=== PATIENT | female | born 1965 | race African-American/Black ===

== ENCOUNTER → 2017-01-17 | Outpatient (CLI) | payer OTHER ==
[~2017-01-17] VITALS: Ht 167.6 cm; Wt 81.4 kg
[~2017-01-17] MED LIST: AMLO10 PO; AMLO10TA2 PO; BETA0.056 TOPICAL; CHLORHEXIDINE GLUCONATE 2 % 1 PACK (2 CLOTHS) TOPICAL PRN; HUMALOG SQ; HYDR25TA5 PO; INSULIN HUMAN REGULAR 1,000 UNITS/10 ML VIAL SQ PRN; LACTATED RINGER'S 1000 ML IV PRN; LOSA25TA PO; METOPROLOL TARTRATE 25 MG TAB PO PRN; NOVONP2 SQ; POVIDONE IODINE 5% (ANTISEPSIS KIT) 4 APPLICATIONS EACH NARE PRN; PROPOFOL 200 MG/20 ML AMP IV ONE; SODIUM CHLORID 0.9% 500 ML IV PRN
[2017-01-17 08:45] VITALS: BP 144/93; PULSE 50; RESP 16; TEMP 98.6; O2SAT 99
[2017-01-17 11:45] VITALS: TEMP 97.4
--- NOTE | 2017-01-17 11:57 | GIPROC ---
[facility] [address] [facility]. [facility], [address] COLONOSCOPY PROCEDURE REPORT EXAM DATE: 01/17/2017 PATIENT NAME: Erica Tesfaye MR #: [id number] BIRTHDATE: 1965 ENDOSCOPIST: Marty Sivla MD ORDER #: [id number] NEEDLEMAKER: Laith Casas and Jose Guadalupe Howe STATUS: outpatient INDICATIONS: The patient is a 51 yr old female here for a colonoscopy due to average risk patient for colon cancer PROCEDURE PERFORMED: Colonoscopy with biopsy MEDICATIONS: None and Per Anesthesia. PREP QUALITY: adequate ESTIMATED BLOOD LOSS: None CONSENT: The patient understands the risks and benefits of the procedure and understands that these risks include, but are not limited to: sedation, allergic reaction, infection, perforation and/or bleeding. Alternative means of evaluation and treatment include, among others: physical exam, x-rays, and/or surgical intervention. The patient elects to proceed with this endoscopic procedure. medical equipment was checked for proper function. Hand hygiene and appropriate measures for infection prevention was taken. After the risks, benefits and alternatives of the procedure were thoroughly explained, Informed consent was verified, confirmed and timeout was successfully executed by the treatment team. A digital exam was performed The Pentax [id number] endoscope was introduced through the anus and advanced to the cecum, which was identified by both the appendix and ileocecal valve. The instrument was then slowly withdrawn as the colon was fully examined. COLON FINDINGS: The colonic mucosa appeared normal in the rectum, sigmoid colon, descending colon, at the splenic flexure, in the transverse colon, at the hepatic flexure, in the ascending colon, at the appendiceal orifice, cecum, and ileocecal valve. A small sessile polyp was found in the sigmoid colon. A polypectomy was performed with cold forceps. The resection was complete and the polyp tissue was completely retrieved. Mild diverticulosis was noted in the sigmoid colon. Retroflexion was performed and was normal The scope was then completely withdrawn from the patient and the procedure terminated. PROCEDURE WITHDRAWAL TIME:6minutes ADVERSE EVENTS: There were no complications. IMPRESSIONS: 1. The colonic mucosa appeared normal in the rectum, sigmoid colon, descending colon, at the splenic flexure, in the transverse colon, at the hepatic flexure, in the ascending colon, at the appendiceal orifice, cecum, and ileocecal valve 2. A small sessile polyp was found in the sigmoid colon; polypectomy was performed with cold forceps 3. Mild diverticulosis was noted in the sigmoid colon 4. Retroflexion was performed and was normal 5. Was performed RECOMMENDATIONS: 1. Await biopsy results. Biopsy results will not be ready for 7-10 days. If you don't hear from us in two weeks, call our office for results. 2. High fiber diet RECALL: Return 5 years Colonoscopy if polyp adenoma. 10 yrs if polyp hyperplastic. Marty Silva MD eSigned: Marty Silva MD 01/17/2017 11:57 AM cc: Froylan Burt M.D. PATIENT NAME: Erica Tesfaye MR#: [id number]
[2017-01-17 11:59] VITALS: BP 116/85; PULSE 62; RESP 16; O2SAT 98
--- NOTE | 2017-01-17 18:42 | EKG ---
Date Performed: 01/17/2017 Time Performed: 08:15:38 PTAGE: 51 years EKG: SINUS BRADYCARDIA NONSPECIFIC T-WAVE ABNORMALITY BORDERLINE ECG NO PREVIOUS TRACING DOCTOR: Arnoldo Valle Interpretating Date/Time 01/17/2017 18:41:03
== END ==
LOC: HEND 08:00
PROVIDERS: ATTEND Internal Medicine Gastroenterology
DX: D12.5 Benign neoplasm of sigmoid colon (principal); K63.89 Other specified diseases of intestine; K57.30 Diverticulosis of large intestine without perforation or abscess without bleeding; E11.9 Type 2 diabetes mellitus without complications; I10 Essential (primary) hypertension; Z86.73 Personal history of transient ischemic attack (TIA), and cerebral infarction without residual deficits
CPT/HCPCS: 82948; 88305; 93005

== ENCOUNTER 2017-10-08 07:16 | Day surgery (SDC) | payer OTHER ==
[~2017-10-08] VITALS: Ht 167.6 cm; Wt 81.4 kg
[~2017-10-08 07:16] MED LIST changes: -AMLO10 PO; -CHLORHEXIDINE GLUCONATE 2 % 1 PACK (2 CLOTHS) TOPICAL PRN; -INSULIN HUMAN REGULAR 1,000 UNITS/10 ML VIAL SQ PRN; -LACTATED RINGER'S 1000 ML IV PRN; -METOPROLOL TARTRATE 25 MG TAB PO PRN; -POVIDONE IODINE 5% (ANTISEPSIS KIT) 4 APPLICATIONS EACH NARE PRN; -PROPOFOL 200 MG/20 ML AMP IV ONE; -SODIUM CHLORID 0.9% 500 ML IV PRN
[2017-10-08] MEDS ORDERED: IOHEXOL 350 MG/ML 50 ML BTL (for Cath Lab) OTHER ONE (07:17)
[2017-10-08 07:49] VITALS: BP 139/94; PULSE 71; RESP 18; TEMP 98.2; O2SAT 96
[2017-10-08] MEDS ORDERED: BUTA1CAP PO (07:53)
[2017-10-08 08:07] LABS: AUTOMATED NEUTROPHIL # 2.7 TH/MM3 (1.8-7.7); BASOPHIL # 0.1 TH/MM3 (0-0.2); BASOPHIL % 0.7 % (0.0-2.0); EOSINOPHIL # 0.2 TH/MM3 (0-0.4); EOSINOPHIL % 2.7 % (0.0-4.0); HEMATOCRIT 41.3 % (35.0-46.0); HEMOGLOBIN 14.4 GM/DL (11.6-15.3); LYMPH % 56.2 % (9.0-44.0); LYMPHOCYTE # 4.6 TH/MM3 (1.0-4.8); MEAN CELL VOLUME 95.7 FL (80.0-100.0); MEAN CORPUSCULAR HEMOGLOBIN 33.5 PG (27.0-34.0); MONOCYTE # 0.6 TH/MM3 (0-0.9); NEUT % 33.4 % (16.0-70.0); PLATELET COUNT 182 TH/MM3 (150-450); RED BLOOD COUNT 4.31 MIL/MM3 (4.00-5.30); RED CELL DISTRIBUTION WIDTH 13.3 % (11.6-17.2); WHITE BLOOD COUNT 8.2 TH/MM3 (4.0-11.0)
[2017-10-08] MEDS ORDERED: HEPARIN-NS/PF INJ 1,000 ML ONE (08:11)
[2017-10-08 08:17] LABS: PROTHROMBIN TIME - PATIENT 10.3 SEC (9.8-11.6)
[2017-10-08 08:20] LABS: BICARBONATE 26.3 MEQ/L (21.0-32.0); CALCIUM 8.7 MG/DL (8.5-10.1); CREATININE 0.72 MG/DL (0.50-1.00)
[2017-10-08] MEDS ORDERED: NS 1000P @30 MLS/HR (KVO) IV SCH (08:30)
[2017-10-08] MEDS ORDERED: MIDAZOLAM HCL 2 MG/2 ML VIAL ONE (08:36)
[2017-10-08] MEDS ORDERED: VERAPAMIL HCL 5 MG/2 ML VIAL ONE (08:36)
[2017-10-08] MEDS ORDERED: HEPARIN SODIUM - IV 10,000 UNITS/10 ML VIAL ONE (08:36)
[2017-10-08] MEDS ORDERED: NITROGLYCERIN INJ 5 ML ONE (08:36)
[2017-10-08] MEDS ORDERED: SODIUM CHLOR 0.9% 1000 ML INJ 400 ML IV ONE (09:15)
--- NOTE | 2017-10-08 17:22 | EKG ---
Date Performed: 10/08/2017 Time Performed: 07:57:54 PTAGE: 51 years EKG: Sinus rhythm . Normal ECG NO PREVIOUS TRACING DOCTOR: Earline Tapia Interpretating Date/Time 10/08/2017 17:19:52
--- NOTE | 2017-10-09 09:35 | MP ---
cc: NIKA CARR MD DATE OF SURGERY 10/08/17 INDICATIONS A 51 year old with history of hypertension, persistenmt chest pain, abnormal stress test for ischemia. PROCEDURE Left heart catheterization, angiogram, left ventriculogram PROCEDURE IN DETAIL After obtaining informed consent, the patient in a fasting state was brought to the catheterization lab. The right groin area was sterilized and draped with sterile drapes. 1% Xylocaine was used to locally anesthetize the area. A 5 [place] sheath was used to access the right femoral artery, and a [place] catheter used to intubate left main and intubate the right coronary artery. Multiple perform the left ventriculogram and the pressure measurements. At the end of the procedure, sheath taken out, TR band applied, sent back to recovery room in stable condition. No complications. CORONARY ANGIOGRAM: The left main coronary artery is a medium size vessel almost bifurcates immediately to the left anterior descending artery and left circumflex coronary artery. The left main has no significant disease. The left anterior descending coronary artery was measured to have no significant disease. The left circumflex coronary artery was measured to have no significant disease. The right coronary artery dominant with no significant disease. LEFT VENTRICULOGRAM: The ejection fraction is estimated to be 55%. There is no pressure gradient across the aortic valve. The left ventricular end-diastolic pressure is 14. Aortic pressure is 140/80. Medical management to continue. POSTOPERATIVE DIAGNOSIS Persistent chest pain. No significant coronary artery disease. of left ventricle. MD SAMUEL Sawyer/ /9:06 AM /9:16 AM
== END 2017-10-08 12:34 | disposition home or self-care (01) ==
LOC: HDOC 07:16 → HDIC 07:17 → HDOC 12:34
PROVIDERS: ATTEND Internal Medicine Cardiovascular Disease
DX: R07.9 Chest pain, unspecified (principal); I10 Essential (primary) hypertension; E78.5 Hyperlipidemia, unspecified; E11.9 Type 2 diabetes mellitus without complications; F17.200 Nicotine dependence, unspecified, uncomplicated; Z79.4 Long term (current) use of insulin; Z86.73 Personal history of transient ischemic attack (TIA), and cerebral infarction without residual deficits
CPT/HCPCS: 80048; 85025; 85610; 85730; 93005; 93458; 99152; C1769; C1893; J1644; J2250; Q9967